=== PATIENT | male | born 1985 | race Caucasian/White ===

== ENCOUNTER 2018-10-19 21:23 | Inpatient (IN) | payer OTHER ==
[2018-10-19 22:49] VITALS: BMI 25.0
--- NOTE | 2018-10-20 01:10 | HP ---
CIWA Score Nausea/Vomitin Muscle Tremors: 4-Moderate,w/Arms Extend Anxiety: 3 Agitation: 4-Moderately Restless Paroxysmal Sweats: 2 Orientation: 2-Disoriented Date<2 days Tacttile Disturbances: 0-None Auditory Disturbances: 0-None Visual Disturbances: 0-None Headache: 0-None Present CIWA-Ar Total Score: 18 - Admission Criteria [facility]ASAS Guidelines: Admission for Medically Managed Detox: Requires at least one of the followin. CIWA greater than 12 2. Seizures within the past 24 hours 3. Delirium tremens within the past 24 hours 4. Hallucinations within the past 24 hours 5. Acute intervention needed for co occurring medical disorder 6. Acute intervention needed for co occurring psychiatric disorder 7. Severe withdrawal that cannot be handled at a lower level of care (continued vomiting, continued diarrhea, abnormal vital signs) requiring intravenous medication and/or fluids 8. Admission ROS [facility] Chief Complaint: Alcohol withdrawal symptoms Allergies/Adverse Reactions: Allergies Allergy/AdvReac Type Severity Reaction Status Date / Time No Known Allergies Allergy Verified 10/19/18 22:37 History of Present Illness: 32 years old male with a long history of alcohol dependence is seeking admission to detox. Patient has been in previous detox, last at [facility]. He denies past medical history and suicidal ideation at this time Exam Limitations: Intoxication - Ebola screening Have you traveled outside of the country in the last 21 days: No (N) Have you had contact with anyone from an Ebola affected area: No Do you have a fever: No - Review of Systems Constitutional: Chills, Malaise, Changes in sleep, Weakness EENT: reports: No Symptoms Reported Respiratory: reports: No Symptoms reported Cardiac: reports: No Symptoms Reported GI: reports: Nausea, Poor Appetite, Poor Fluid Intake, Vomiting, Abdominal cramping : reports: No Symptoms Reported Musculoskeletal: reports: Back Pain, Joint Pain, Muscle Weakness Integumentary: reports: Dryness, Flushing Endocrine: reports: No Symptoms Reported Hematology: reports: No Symptoms Reported Psychiatric: reports: Anxious Other Systems: Reviewed and Negative Patient History - Patient Medical History Hx Anemia: No Hx Asthma: No Hx Chronic Obstructive Pulmonary Disease (COPD): No Hx Cancer: No Hx Cardiac Disorders: No Hx Congestive Heart Failure: No Hx Hypertension: No Hx Hypercholesterolemia: No Hx Pacemaker: No HX Cerebrovascular Accident: No Hx Seizures: No Hx Dementia: No Hx Diabetes: No Hx Gastrointestinal Disorders: No Hx Liver Disease: No Hx Genitourinary Disorders: No Hx Sexually Transmitted Disorders: No Hx Renal Disease (ESRD): No Hx Thyroid Disease: No Hx Human Immunodeficiency Virus (HIV): No (Negative 2013) Hx Hepatitis C: No Hx Depression: Yes (no med) Hx Suicide Attempt: No (Denies suicidal ideation at this time) Hx Bipolar Disorder: No Hx Schizophrenia: No - Patient Surgical History Past Surgical History: Yes Hx Neurologic Surgery: No Hx Cataract Extraction: No Hx Cardiac Surgery: No Hx Lung Surgery: No Hx Abdominal Surgery: No Hx Appendectomy: No Hx Cholecystectomy: No Hx Genitourinary Surgery: No Hx Section: No Hx Orthopedic Surgery: No Other Surgical History: 7 months ago a blanka wire torn thru left testicle; was hospitalized repair i Anesthesia Reaction: No - PPD History Previous Implant?: Yes Documented Results: Negative w/proof Implanted On Prior [facility] Admission?: Yes Date: 04/09/14 PPD to be Administered?: Yes - Reproductive History Patient is a Female of Child Bearing Age (11 -55 yrs old): No (male) - Smoking Cessation Smoking history: Current every day smoker Have you smoked in the past 12 months: Yes Aproximately how many cigarettes per day: 3 If you are a former smoker, when did you quit?: Cigars Per Day: 0 Hx Chewing Tobacco Use: No Initiated information on smoking cessation: Yes 'Breaking Loose' booklet given: 10/20/18 - Substance & Tx. History Hx Alcohol Use: Yes Hx Substance Use: Yes Substance Use Type: Alcohol, Marijuana Hx Substance Use Treatment: Yes ([facility]) - Substances abused Alcohol Substance route: Oral Frequency: Daily Amount used: 2 PINTS Age of first use: 5 Date of last use: 10/19/18 Family Disease History - Family Disease History Family Disease History: Other: Father (ETOH DEPENDENT) Admission Physical Exam [facility] - Vital Signs Vital Signs: Vital Signs - 24 hr 10/19/18 22:41 Temperature 98.4 F Pulse Rate 94 H Respiratory 18 Rate Blood Pressure 117/71 - Physical General Appearance: Yes: Severe Distress, Intoxicated, Tremorous, Irritable, Anxious HEENTM: Yes: Within Normal Limits, Normal Voice Respiratory: Yes: Lungs Clear, Normal Breath Sounds, No Respiratory Distress Neck: Yes: Supple Breast: Yes: Breast Exam Deferred Cardiology: Yes: Tachycardia Abdominal: Yes: Normal Bowel Sounds Back: Yes: Normal Inspection Musculoskeletal: Yes: Back pain, Muscle Pain Extremities: Yes: Tremors Neurological: Yes: Within Normal Limits Integumentary: Yes: Warm Lymphatic: Yes: Within Normal Limits Cleared for Admission S - Detox or Rehab [facility] Level of Care: Medically Managed Detox Regimen/Protocol: Librium Breathalyzer - Breathalyzer Breathalyzer: 0.109 Urine Drug Screen - Test Device Lot number: [id number] Expiration date: 10/20/18 - Results Drug screen NEGATIVE: No Urine drug screen results: THC-Marijuana Inpatient Rehab Admission - Rehab Decision to Admit Inpatient rehab admission?: No
[2018-10-20] MEDS ORDERED: MENTHOL/PHENOL 1 EACH UD MM PRN (01:19)
[2018-10-20] MEDS ORDERED: hydrOXYzine PAMOATE 25 MG CAPSULE (FP) PO PRN (01:19)
[2018-10-20] MEDS ORDERED: METHOCARBAMOL 500 MG TABLET PO PRN (01:19)
[2018-10-20] MEDS ORDERED: IBUPROFEN 400 MG TABLET (FP) PO PRN (01:19)
[2018-10-20] MEDS ORDERED: MAGNESIUM HYDROX 2400MG/30ML ORAL SUSPENSION 30 ML CUP PO PRN (01:19)
[2018-10-20] MEDS ORDERED: ACETAMINOPHEN 325 MG TABLET (FP) PO PRN ×2 (01:19)
[2018-10-20] MEDS ORDERED: MAGNESIUM CITRATE 300 ML BOTTLE PO PRN (01:19)
[2018-10-20] MEDS ORDERED: BISMUTH SUBSALICYLATE 524 MG/30 ML UD PO PRN (01:19)
[2018-10-20] MEDS ORDERED: MAG HYDROX/AL HYDROX/SIMETH 30 ML UNIT-DOSE CUP PO PRN (01:19)
[2018-10-20] MEDS ORDERED: chlordiazePOXIDE HCL 25 MG CAPSULE PO PRN (01:19)
[2018-10-20] MEDS ORDERED: NICOTINE POLACRILEX 2 MG GUM BUC PRN (01:19)
[2018-10-20] MEDS ORDERED: MELATONIN 5 MG TABLETS PO PRN (01:19)
[2018-10-20] MEDS ORDERED: TUBERCULIN PPD 5 TU/0.1ML VIAL ID ONE (05:58)
[2018-10-20] MEDS: chlordiazePOXIDE HCL 25 MG CAPSULE PO SCH ×4 (06:00→22:28)
[2018-10-20] MEDS: NICOTINE 14 MG/24 HOURS TOPICAL PATCH TD SCH (11:00)
--- NOTE | 2018-10-20 11:09 | PN ---
[facility] CIWA - CIWA Score Nausea/Vomitin Muscle Tremors: 2 Anxiety: 2 Agitation: 2 Paroxysmal Sweats: 1-Minimal Palms Moist Orientation: 0-Oriented Tacttile Disturbances: 1-Very Mild Itch/Numbness Auditory Disturbances: 1-Very Mild Visual Disturbances: 0-None Headache: 2-Mild CIWA-Ar Total Score: 13 BHS Progress Note (SOAP) Subjective: alert,irritable,anxious,interrupted sleep,tremor Objective: 10/20/18 11:07 Vital Signs Temperature 98.1 F 10/20/18 09:21 Pulse Rate 87 10/20/18 09:21 Respiratory Rate 16 10/20/18 09:21 Blood Pressure 134/76 10/20/18 09:21 O2 Sat by Pulse Oximetry (%) Assessment: 10/20/18 11:08 withdrawal symptom Plan: continue detox
[2018-10-20] MEDS: PRENATAL VITAMINS W/ FOLIC ACID TABLET (FP) PO SCH (12:00)
[2018-10-20] MEDS ORDERED: THIAMINE HCL 100 MG TABLET (FP) PO SCH (22:00)
[2018-10-21] MEDS: chlordiazePOXIDE HCL 25 MG CAPSULE PO SCH ×2 (05:49→10:09)
[2018-10-21] MEDS ORDERED: PNEUMOC 13-VAL CONJ-DIP CRM/PF 0.5 ML DISP.SYRIN IM ONE (09:09)
[2018-10-21 09:26] VITALS: BP 113/72; PULSE 67; TEMP 97.8
[2018-10-21 10:09] LABS: HEMATOCRIT 43.1 % (35.4-49); HEMOGLOBIN 14.3 GM/dL (11.7-16.9); MCH 30.3 pg (25.7-33.7); MCHC 33.3 g/dl (32.0-35.9); MEAN CELL VOLUME 91.1 fl (80-96); MEAN PLT VOLUME 8.1 fl (7.5-11.1); PLATELET COUNT 233 K/MM3 (134-434); RBC 4.73 M/mm3 (4.00-5.60); RDW 15.3 % (11.9-15.9); WHITE BLOOD COUNT 6.3 K/mm3 (4.0-10.0)
[2018-10-21] MEDS: PRENATAL VITAMINS W/ FOLIC ACID TABLET (FP) PO SCH (10:09)
[2018-10-21] MEDS: NICOTINE 14 MG/24 HOURS TOPICAL PATCH TD SCH (10:10)
[2018-10-21 10:14] LABS: ALBUMIN 3.4 g/dl (3.4-5.0); BILIRUBIN,TOTAL 0.8 mg/dL (0.2-1); CALCIUM 9.2 mg/dL (8.5-10.1); CREATININE 0.6 mg/dL (0.55-1.3); POTASSIUM 3.8 mmol/L (3.5-5.1)
--- NOTE | 2018-10-21 10:42 | EKG ---
Test Reason : Blood Pressure : / mmHG Vent. Rate : 086 BPM Atrial Rate : 086 BPM P-R Int : 160 ms QRS Dur : 080 ms QT Int : 340 ms P-R-T Axes : 065 055 043 degrees QTc Int : 406 ms NORMAL SINUS RHYTHM NORMAL ECG NO PREVIOUS ECGS AVAILABLE Confirmed by JENNIFER HOWELL, PAU ([id number]) on 10/21/2018 10:41:50 AM Referred By: Confirmed By:PAU RODRIGUEZ MD
--- NOTE | 2018-10-21 11:46 | DS ---
[facility] Detox Discharge Summary Admission Date: 10/20/18 Discharge Date: 10/21/18 - History Present History: Alcohol Dependence Additional Comments: PT DECLINED TO CONTINUE DETOX FOR PERSONAL REASONS. PT REPORTED NO WITHDRAWAL SX ON ROUNDS THIS MORNING. ALERT O X 3. AMBULATING WITH STEADY GAIT. Pertinent Past History: PLEASE SEE DX BELOW - Physical Exam Results Vital Signs: Vital Signs Temperature 97.8 F 10/21/18 09:25 Pulse Rate 67 10/21/18 09:25 Respiratory Rate 18 10/21/18 09:25 Blood Pressure 113/72 10/21/18 09:25 O2 Sat by Pulse Oximetry (%) Pertinent Admission Physical Exam Findings: WITHDRAWAL SX Laboratory Tests 10/21/18 10/21/18 07:50 07:50 WBC 6.3 RBC 4.73 Hgb 14.3 Hct 43.1 MCV 91.1 MCH 30.3 MCHC 33.3 RDW 15.3 D Plt Count 233 MPV 8.1 Sodium 139 Potassium 3.8 Chloride 105 Carbon Dioxide 30 Anion Gap 4 L BUN 8.0 Creatinine 0.6 Est GFR (CKD-EPI)AfAm 152.04 Est GFR (CKD-EPI)NonAf 131.18 Random Glucose 102 Calcium 9.2 Total Bilirubin 0.8 AST 81 H ALT 72 H Alkaline Phosphatase 111 Total Protein 7.0 Albumin 3.4 - Treatment Hospital Course: Discharged Condition Good - Medication Discharge Medications: Ambulatory Orders NK [No Known Home Medication] 10/19/18 - Diagnosis (1) Nicotine dependence Current Visit: Yes Status: Acute Qualifiers: Nicotine product type: cigarettes Substance use status: in withdrawal Qualified Code(s): F17.213 - Nicotine dependence, cigarettes, with withdrawal (2) Vision loss of left eye Current Visit: Yes Status: Chronic (3) Alcohol dependence with uncomplicated withdrawal Current Visit: Yes Status: Acute - AMA Did Patient Leave Against Medical Advice: Yes (AMA)
[2018-10-21] MEDS ORDERED: PNEUMOCOCCAL 23 VACCINE 0.5 ML VIAL IM ONE (12:00)
[2018-10-22] MEDS ORDERED: chlordiazePOXIDE HCL 10 MG CAPSULE PO PRN
[2018-10-22] MEDS ORDERED: chlordiazePOXIDE HCL 10 MG CAPSULE PO SCH (05:00)
[2018-10-23] MEDS ORDERED: chlordiazePOXIDE HCL 10 MG CAPSULE PO SCH (05:00)
[2018-10-24] MEDS ORDERED: chlordiazePOXIDE HCL 10 MG CAPSULE PO ONE (05:00)
== END 2018-10-21 10:58 | disposition left against medical advice (07) | DRG 894 ==
LOC: YASAS 21:23 → Y6N 10-20 03:15
PROVIDERS: ADMIT Surgery; ATTEND Surgery
PROC: HZ2ZZZZ Detoxification Services for Substance Abuse Treatment (ICD-10-PCS; principal; 2018-10-20)
DX: F10.230 Alcohol dependence with withdrawal, uncomplicated (principal); F17.210 Nicotine dependence, cigarettes, uncomplicated; F32.9 Major depressive disorder, single episode, unspecified; H54.62 Unqualified visual loss, left eye, normal vision right eye
CPT/HCPCS: 36415; 80053; 85027; 86593; 93005; 93010

== ENCOUNTER 2018-10-27 18:07 | Emergency (ER) | payer OTHER ==
[2018-10-27 18:15] VITALS: BP 142/94; PULSE 99; TEMP 97.4; BMI 25.7
--- NOTE | 2018-10-27 18:17 | PDOC ---
Rapid Medical Evaluation Chief Complaint: Rash Time Seen by Provider: 10/27/18 18:11 Medical Evaluation: Allergies Allergy/AdvReac Type Severity Reaction Status Date / Time No Known Allergies Allergy Verified 10/27/18 18:11 10/27/18 18:14 Pt c/o: gen itching, drinks approx 24 beers/day. denies insect bits or bumps to skin, denies liver failure Pt on brief exam: skin intact, + intox Pt ordered for: lft, cbc Pt to proceed to the ED Discharge Disposition - Diagnosis Itching, Eloped from emergency department - Discharge Dispostion Disposition: ELOPED Condition at time of disposition: Unchanged/Unknown - Referrals - Patient Instructions - Post Discharge Activity
== END 2018-10-27 22:46 | disposition left against medical advice (07) ==
LOC: JER 18:07
DX: L29.9 Pruritus, unspecified (principal)
CPT/HCPCS: 99281-25

== ENCOUNTER 2018-10-28 09:28 | Emergency (ER) | payer OTHER ==
[2018-10-28 09:34] VITALS: BP 125/97; PULSE 84; TEMP 98; BMI 22.8
--- NOTE | 2018-10-28 10:46 | PDOC ---
History of Present Illness - General Chief Complaint: Tremors Stated Complaint: CRAWLING UNDER SKIN SENSATION Time Seen by Provider: 10/28/18 10:08 History Source: Patient Exam Limitations: Clinical Condition - History of Present Illness Initial Comments: 10/28/18 10:39 Patient with history of alcohol abuse present with complaint of over 2 months history of diffuse body itching and skin crawling sensation when he does not drink alcohol.. Patient reported having last drink yesterday morning with vodka 11 AM. Patient report coming last night due to itchiness no skin by fell asleep and was not seen. Patient has been going for detox for alcohol. Denies illicit drug use. Patient reports to smoking 3 months ago. Patient was last in detox a week ago. Denies nausea, vomiting, dizziness, headache or weakness. Denies any other symptoms.Patient reportedly he has been here symptoms over 12 hours ago last night and has not been seen. Upon taking to charge nurse, patient was found to have been eloped as he was not found when provider was ready to see him last night but patient was found sleeping in vertical room this morning and was walking up and reported he was here since yesterday last night but has not been seen. Timing/Duration: other (2 months) Past History - Past Medical History Allergies/Adverse Reactions: Allergies Allergy/AdvReac Type Severity Reaction Status Date / Time No Known Allergies Allergy Verified 10/28/18 09:34 Home Medications: Ambulatory Orders NK [No Known Home Medication] 10/19/18 Anemia: No Asthma: No Cancer: No Cardiac Disorders: No CVA: No COPD: No CHF: No Dementia: No Diabetes: No GI Disorders: No Disorders: No HTN: No Hypercholesterolemia: No Kidney Stones: No Liver Disease: No Seizures: No Thyroid Disease: No - Surgical History Abdominal Surgery: No Appendectomy: No Cardiac Surgery: No Cholecystectomy: No Lung Surgery: No Neurologic Surgery: No Orthopedic Surgery: No - Reproductive History Testicular Surgery: No - Suicide/Smoking/Psychosocial Hx Smoking History: Unknown if ever smoked Have you smoked in the past 12 months: No Number of Cigarettes Smoked Daily: 3 If you are a former smoker, when did you quit?: Cigars Per Day: 0 'Breaking Loose' booklet given: 10/20/18 Hx Alcohol Use: Yes Drug/Substance Use Hx: No Substance Use Type: Alcohol, Marijuana Hx Substance Use Treatment: Yes ([facility]) Review of Systems - Review of Systems Able to Perform ROS?: Yes Is the patient limited Ug[place]an proficient: No Constitutional: No: Malaise, Weakness HEENTM: No: Symptoms Reported Respiratory: No: Symptoms reported, See HPI, Cough, Orthopnea, Shortness of Breath, SOB with Exertion, SOB at Rest, Stridor, Wheezing, Productive cough, Hemoptysis, Other Cardiac (ROS): No: Symptoms Reported, See HPI, Chest Pain, Edema, Irregular Heart Rate, Lightheadedness, Palpitations, Syncope, Chest Tightness, Other ABD/GI: No: Symptoms Reported, Nausea, Vomiting Integumentary: Yes: Symptoms Reported, See HPI, Pruritus (whle body) Neurological: Yes: Symptoms reported, See HPI, Tingling. No: Numbness, Paresthesia, Weakness, Dizziness All Other Systems: Reviewed and Negative *Physical Exam - Vital Signs Last Vital Signs Temp Pulse Resp BP Pulse Ox 98 F 84 20 125/97 99 10/28/18 09:32 10/28/18 09:32 10/28/18 09:32 10/28/18 09:32 10/28/18 09:32 - Physical Exam General Appearance: Yes: Nourished, Appropriately Dressed, Alcohol on Breath HEENT: positive: ELISE, Normal ENT Inspection Neck: positive: Supple Respiratory/Chest: positive: Lungs Clear. negative: Respiratory Distress, Accessory Muscle Use, Labored Respiration Cardiovascular: positive: Regular Rhythm, Regular Rate Musculoskeletal: positive: Normal Inspection Extremity: positive: Normal Inspection Neurologic: positive: Fully Oriented, Alert, Normal Mood/Affect, Normal Response Medical Decision Making - Medical Decision Making 10/28/18 10:41 Patient with history of alcohol abuse present with complaint of over 2 months history of diffuse body itching and skin crawling sensation when he does not drink alcohol.. Patient reported having last drink yesterday morning with vodka 11 AM. Patient report coming last night due to itchiness no skin by fell asleep and was not seen. Patient has been going for detox for alcohol. Denies illicit drug use. Patient reports to smoking 3 months ago. Patient was last in detox a week ago. Denies nausea, vomiting, dizziness, headache or weakness. Denies any other symptoms Clinical exam unremarkable with normal neuro exam. Patient advised skin itching and crawling sensation likely due to alcohol and will need to go back to detox to help with alcohol withdrawal. Patient advised to detox center will be contacted so patient can go for detox today. Patient voiced understanding and will wait for detox instructions 10/28/18 10:49 Patient eloped when attempt was being made to contact detox center. Patient was not found in the vertical room where patient was advised to wait for detox *DC/Admit/Observation/Transfer Diagnosis at time of Disposition: Alcohol dependence with uncomplicated withdrawal - Discharge Dispostion Disposition: ELOPED Condition at time of disposition: Stable Decision to Admit order: No - Referrals - Patient Instructions - Post Discharge Activity
== END 2018-10-28 12:12 | disposition left against medical advice (07) ==
LOC: JER 09:28
DX: Z53.21 Procedure and treatment not carried out due to patient leaving prior to being seen by health care provider (principal)
CPT/HCPCS: 99281-25

== ENCOUNTER 2021-02-05 09:27 | Emergency (ER) | payer OTHER ==
[2021-02-05 09:40] VITALS: BP 135/87; PULSE 90; TEMP 97.7; BMI 22.8
== END 2021-02-05 10:21 | disposition left against medical advice (07) ==
LOC: JER 09:27
DX: R21 Rash and other nonspecific skin eruption (principal)
CPT/HCPCS: 99281-25

== ENCOUNTER 2021-04-17 21:46 | Emergency (ER) | payer OTHER ==
[2021-04-17 22:35] VITALS: BP 117/77; PULSE 100; TEMP 97.6; BMI 21.5
== END 2021-04-18 05:26 | disposition home or self-care (01) ==
LOC: JER 21:46
DX: F10.920 Alcohol use, unspecified with intoxication, uncomplicated (principal)
CPT/HCPCS: 70450-TC; 72125-TC; 82962; 99284-25

== ENCOUNTER 2022-03-03 02:20 | Inpatient (IN) | payer OTHER ==
[2022-03-03] MEDS ORDERED: ACETAMINOPHEN 325 MG TABLET (FP) PO PRN (02:35)
[2022-03-03] MEDS ORDERED: NALOXONE HCL (KLOXXADO) 8 MG SPRAY NS PRN (02:35)
[2022-03-03] MEDS ORDERED: DICYCLOMINE HCL 10 MG CAPSULE PO PRN (02:35)
[2022-03-03] MEDS ORDERED: hydrOXYzine PAMOATE 25 MG CAPSULE (FP) PO PRN (02:35)
[2022-03-03] MEDS ORDERED: MAGNESIUM HYDROX 2400MG/30ML ORAL SUSPENSION 30 ML CUP PO PRN (02:35)
[2022-03-03] MEDS ORDERED: guaiFENesin 200 MG/10 ML 10 ML UNIT-DOSE CUPS PO PRN (02:35)
[2022-03-03] MEDS ORDERED: MAG HYDROX/AL HYDROX/SIMETH 30 ML UNIT-DOSE CUP PO PRN (02:35)
[2022-03-03] MEDS ORDERED: LOPERAMIDE HCL 2 MG CAPSULE PO PRN (02:35)
[2022-03-03] MEDS ORDERED: BENZOCAINE/MENTHOL (CHLORASEPTIC ) LOZENGE MM PRN (02:35)
[2022-03-03] MEDS ORDERED: ONDANSETRON *ODT* 4 MG TABLET SL PRN (02:35)
[2022-03-03] MEDS ORDERED: IBUPROFEN 400 MG TABLET (FP) PO PRN (02:35)
[2022-03-03] MEDS ORDERED: BISMUTH SUBSALICYLATE 524 MG/30 ML PO PRN (02:35)
[2022-03-03] MEDS ORDERED: P-EPHED 60MG/TRIPROLIDI 2.5MG TABLET PO PRN (02:35)
[2022-03-03 02:52] VITALS: BMI 27.9
[2022-03-03] MEDS: METHOCARBAMOL 500 MG TABLET PO PRN ×2 (04:44→17:24)
[2022-03-03] MEDS: IBUPROFEN 600 MG TABLET (FP) PO PRN ×2 (04:45→17:24)
[2022-03-03] MEDS: PRENATAL VITAMINS W/ FOLIC ACID TABLET (FP) PO SCH (09:22)
[2022-03-03] MEDS: ACETAMINOPHEN 325 MG TABLET (FP) PO PRN ×2 (09:22→21:08)
[2022-03-03 12:25] LABS: ALBUMIN 3.6 g/dl (3.4-5.0); BLOOD UREA NITROGEN 10.4 mg/dL (7-18); CALCIUM 8.7 mg/dL (8.5-10.1)
[2022-03-03 12:29] LABS: CREATININE 0.6 mg/dL (0.55-1.3)
[2022-03-03 12:30] LABS: BILIRUBIN,TOTAL 0.9 mg/dL (0.2-1); TOT PROT 7.1 g/dl (6.4-8.2)
[2022-03-03 12:34] LABS: HEMATOCRIT 36.7 % (35.4-49); HEMOGLOBIN 12.6 GM/dL (11.7-16.9); MCH 28.6 pg (25.7-33.7); MCHC 34.4 g/dl (32.0-35.9); MEAN CELL VOLUME 83.1 fl (80-96); MEAN PLT VOLUME 8.4 fl (7.5-11.1); PLATELET COUNT 241 10^3/uL (134-434); RBC 4.42 M/mm3 (4.00-5.60); RDW 14.6 % (11.9-15.9); WHITE BLOOD COUNT 11.1 K/mm3 (4.0-10.0)
[2022-03-03] MEDS ORDERED: THIAMINE HCL 100 MG TABLET (FP) PO SCH (22:00)
[2022-03-03] MEDS ORDERED: MELATONIN 5 MG TABLETS PO SCH (22:00)
[2022-03-04] MEDS: IBUPROFEN 600 MG TABLET (FP) PO PRN (02:42)
[2022-03-04] MEDS: METHOCARBAMOL 500 MG TABLET PO PRN ×2 (02:43→10:28)
[2022-03-04 09:19] VITALS: BP 112/67; PULSE 77; RESP 16; TEMP 97.3
[2022-03-04] MEDS: PRENATAL VITAMINS W/ FOLIC ACID TABLET (FP) PO SCH (10:28)
== END 2022-03-04 11:28 | disposition home or self-care (01) | DRG 897 ==
LOC: YASAS 02:20 → Y3N 02:47 → UNDOADMIN 02:47
PROVIDERS: ADMIT Allergy & Immunology; ATTEND Allergy & Immunology
PROC: HZ2ZZZZ Detoxification Services for Substance Abuse Treatment (ICD-10-PCS; principal; 2022-03-03)
DX: F10.230 Alcohol dependence with withdrawal, uncomplicated (principal); F16.20 Hallucinogen dependence, uncomplicated; H53.002 Unspecified amblyopia, left eye; S42.291D Other displaced fracture of upper end of right humerus, subsequent encounter for fracture with routine healing; X58.XXXD Exposure to other specified factors, subsequent encounter
CPT/HCPCS: 36415; 80053; 85027; 86780; 93005; 93010; 99283-25; C9803-CS; U0003; U0005

== ENCOUNTER 2022-04-05 07:36 | Emergency (ER) | payer OTHER ==
[2022-04-05 08:14] VITALS: TEMP 97.9; BMI 27.0
[2022-04-05] MEDS ORDERED: FAMOTIDINE 20 MG/50 ML IVPB 20 MG in PREMIX 50 IVPB ONE (08:46)
[2022-04-05] MEDS ORDERED: MAG HYDROX/AL HYDROX/SIMETH -MYLANTA- ORAL SUSPENSION PO ONE (08:46)
[2022-04-05] MEDS ORDERED: SODIUM CHLORIDE 1,000 ML IV ONE (08:46)
[2022-04-05] MEDS ORDERED: FAMOTIDINE 20 MG/50 ML IVPB 20 MG/50 ML MG IVPB ONE (08:55)
[2022-04-05] MEDS ORDERED: MAG HYDROX/AL HYDROX/SIMETH 30 ML UNIT-DOSE CUP ONE (08:55)
[2022-04-05 09:23] LABS: BASO % 0.5 % (0-2.0); EOS % 1.6 % (0-4.5); HEMATOCRIT 41.5 % (35.4-49); HEMOGLOBIN 13.5 GM/dL (11.7-16.9); LYMPH % 14.5 % (8-40); MCH 28.7 pg (25.7-33.7); MCHC 32.5 g/dl (32.0-35.9); MEAN CELL VOLUME 88.3 fl (80-96); MEAN PLT VOLUME 7.9 fl (7.5-11.1); MONO % 7.2 % (3.8-10.2); NEUT % 76.2 % (42.8-82.8); PLATELET COUNT 207 10^3/uL (134-434); RBC 4.71 M/mm3 (4.00-5.60); RDW 16.6 % (11.9-15.9); WHITE BLOOD COUNT 7.9 K/mm3 (4.0-10.0)
[2022-04-05 10:01] LABS: BLOOD UREA NITROGEN 9.3 mg/dL (7-18); CALCIUM 9.4 mg/dL (8.5-10.1)
[2022-04-05 10:02] LABS: ALBUMIN 3.4 g/dl (3.4-5.0)
[2022-04-05 10:04] LABS: CREATININE 0.6 mg/dL (0.55-1.3)
[2022-04-05 10:06] LABS: BILIRUBIN,TOTAL 0.5 mg/dL (0.2-1); TOT PROT 7.8 g/dl (6.4-8.2)
[2022-04-05 11:18] VITALS: BP 141/90; PULSE 97; RESP 18
== END 2022-04-05 12:14 | disposition home or self-care (01) ==
LOC: JER 07:36
PROC: 3E033GC Introduction of Other Therapeutic Substance into Peripheral Vein, Percutaneous Approach (ICD-10-PCS; principal; 2022-04-05)
PROC: 3E0337Z Introduction of Electrolytic and Water Balance Substance into Peripheral Vein, Percutaneous Approach (ICD-10-PCS; 2022-04-05)
DX: R10.13 Epigastric pain (principal); L29.9 Pruritus, unspecified; R74.01 Elevation of levels of liver transaminase levels
CPT/HCPCS: 0241U-QW; 36415; 73030-TC-RT-FY; 80053; 83690; 85025; 99284-25

== ENCOUNTER 2023-04-11 13:09 | Inpatient (IN) | payer OTHER ==
[2023-04-11 14:24] VITALS: BMI 25.0
[2023-04-11] MEDS ORDERED: P-EPHED 60MG/TRIPROLIDI 2.5MG TABLET PO PRN (14:49)
[2023-04-11] MEDS ORDERED: BENZONATATE 200 MG CAPSULE PO PRN (14:49)
[2023-04-11] MEDS ORDERED: ACETAMINOPHEN 325 MG TABLET (FP) PO PRN (14:49)
[2023-04-11] MEDS ORDERED: MAG HYDROX/AL HYDROX/SIMETH 30 ML UNIT-DOSE CUP PO PRN (14:49)
[2023-04-11] MEDS ORDERED: IBUPROFEN 400 MG TABLET (FP) PO PRN (14:49)
[2023-04-11] MEDS ORDERED: BISMUTH SUBSALICYLATE 262 MG/15 ML BTL PO PRN (14:49)
[2023-04-11] MEDS ORDERED: DICYCLOMINE HCL 10 MG CAPSULE PO PRN (14:49)
[2023-04-11] MEDS ORDERED: ONDANSETRON *ODT* 4 MG TABLET SL PRN (14:49)
[2023-04-11] MEDS ORDERED: hydrOXYzine PAMOATE 25 MG CAPSULE (FP) PO PRN (14:49)
[2023-04-11] MEDS ORDERED: METHOCARBAMOL 500 MG TABLET PO PRN (14:49)
[2023-04-11] MEDS ORDERED: POLYETHYLENE GLYCOL (HEALTHYLAX) 3350 17 GM PACKET PO PRN (14:49)
[2023-04-11] MEDS ORDERED: LOPERAMIDE HCL 2 MG CAPSULE PO PRN (14:49)
[2023-04-11] MEDS ORDERED: MAGNESIUM HYDROX 2400MG/30ML ORAL SUSPENSION 30 ML CUP PO PRN (14:49)
[2023-04-11] MEDS: diazePAM 5 MG TABLET PO PRN (15:45)
[2023-04-11] MEDS: IBUPROFEN 600 MG TABLET (FP) PO PRN (17:40)
[2023-04-11] MEDS: diazePAM 5 MG TABLET PO SCH ×2 (17:40→23:15)
[2023-04-11] MEDS: MELATONIN 5 MG TABLETS PO SCH (23:15)
[2023-04-11] MEDS: THIAMINE HCL 100 MG TABLET (FP) PO SCH (23:15)
[2023-04-12] MEDS: diazePAM 5 MG TABLET PO PRN (00:11)
[2023-04-12] MEDS: diazePAM 5 MG TABLET PO SCH ×4 (05:23→22:26)
[2023-04-12] MEDS: PRENATAL VITAMINS W/ FOLIC ACID TABLET (FP) PO SCH (10:10)
[2023-04-12 11:21] LABS: HIV INTERPRETATION NEGATIVE (NEGATIVE)
[2023-04-12] MEDS: guaiFENesin 600 MG TABLET.ER (FP) PO PRN ×2 (14:41→22:28)
[2023-04-12] MEDS: BENZOCAINE/MENTHOL (CHLORASEPTIC ) LOZENGE MM PRN (14:41)
[2023-04-12] MEDS ORDERED: HYDROCORTISONE 1% TOPICAL CREAM 30 GM TUBE TP PRN (20:42)
[2023-04-12] MEDS: THIAMINE HCL 100 MG TABLET (FP) PO SCH (22:26)
[2023-04-12] MEDS: MELATONIN 5 MG TABLETS PO SCH (22:26)
[2023-04-13] MEDS: diazePAM 5 MG TABLET PO SCH ×3 (05:44→22:33)
[2023-04-13] MEDS: PRENATAL VITAMINS W/ FOLIC ACID TABLET (FP) PO SCH (10:26)
[2023-04-13] MEDS: diazePAM 5 MG TABLET PO PRN (10:28)
[2023-04-13] MEDS: guaiFENesin 600 MG TABLET.ER (FP) PO PRN (13:51)
[2023-04-13] MEDS: BENZOCAINE/MENTHOL (CHLORASEPTIC ) LOZENGE MM PRN (13:51)
[2023-04-13] MEDS: THIAMINE HCL 100 MG TABLET (FP) PO SCH (22:33)
[2023-04-13] MEDS: MELATONIN 5 MG TABLETS PO SCH (22:33)
[2023-04-14] MEDS: diazePAM 5 MG TABLET PO SCH ×2 (05:24→17:45)
[2023-04-14] MEDS: diazePAM 5 MG TABLET PO PRN (10:31)
[2023-04-14] MEDS: PRENATAL VITAMINS W/ FOLIC ACID TABLET (FP) PO SCH (10:32)
[2023-04-14] MEDS: IBUPROFEN 600 MG TABLET (FP) PO PRN (22:16)
[2023-04-14] MEDS: THIAMINE HCL 100 MG TABLET (FP) PO SCH (22:16)
[2023-04-14] MEDS: MELATONIN 5 MG TABLETS PO SCH (22:16)
[2023-04-14] MEDS: BENZOCAINE/MENTHOL (CHLORASEPTIC ) LOZENGE MM PRN (22:18)
[2023-04-15] MEDS ORDERED: diazePAM 5 MG TABLET PO ONE (06:00)
[2023-04-15 08:56] VITALS: BP 98/64; PULSE 82; RESP 16; TEMP 97.8
[2023-04-15] MEDS: PRENATAL VITAMINS W/ FOLIC ACID TABLET (FP) PO SCH (09:52)
== END 2023-04-15 10:56 | disposition home or self-care (01) | DRG 897 ==
LOC: YASAS 13:09 → Y3N 14:57
PROVIDERS: ADMIT Allergy & Immunology; ATTEND Surgery
PROC: HZ2ZZZZ Detoxification Services for Substance Abuse Treatment (ICD-10-PCS; principal; 2023-04-11)
DX: F10.230 Alcohol dependence with withdrawal, uncomplicated (principal); F16.10 Hallucinogen abuse, uncomplicated; F17.210 Nicotine dependence, cigarettes, uncomplicated; S42.292D Other displaced fracture of upper end of left humerus, subsequent encounter for fracture with routine healing; W19.XXXD Unspecified fall, subsequent encounter; Z28.310 Unvaccinated for COVID-19; Z28.9 Immunization not carried out for unspecified reason
CPT/HCPCS: 36415; 73030-TC-LT-FY; 86780; 87389; 87635; 87811; Q0162

== ENCOUNTER 2023-04-11 19:28 | Emergency (ER) | payer OTHER ==
[2023-04-11 19:55] VITALS: BP 114/69; PULSE 98; RESP 18; TEMP 97.9; BMI 28.1
[2023-04-11] MEDS ORDERED: FOLIC ACID INJECTION - 1 MG, THIAMINE HCL 100 MG, MULTIVIT INJECTION ADULT 10 ML in SOD... IVPB ONE (20:08)
[2023-04-11] MEDS ORDERED: ACETAMINOPHEN 1000 MG/100 ML BAG IVPB ONE (20:25)
[2023-04-11] MEDS ORDERED: ACETAMINOPHEN INJECTION 100 ML IVPB ONE (20:28)
[2023-04-11 20:46] LABS: BASO % 0.5 % (0-2.0); EOS % 2.5 % (0-4.5); HEMATOCRIT 43.1 % (35.4-49); HEMOGLOBIN 14.3 GM/dL (11.7-16.9); LYMPH % 36.3 % (8-40); MCH 31.2 pg (25.7-33.7); MCHC 33.2 g/dl (32.0-35.9); MEAN CELL VOLUME 93.9 fl (80-96); MEAN PLT VOLUME 7.4 fl (7.5-11.1); MONO % 10.1 % (3.8-10.2); NEUT % 50.6 % (42.8-82.8); PLATELET COUNT 221 10^3/uL (134-434); RBC 4.59 M/mm3 (4.00-5.60); RDW 13.8 % (11.9-15.9); WHITE BLOOD COUNT 5.9 K/mm3 (4.0-10.0)
[2023-04-11 20:57] LABS: INR 0.95 (0.83-1.09)
[2023-04-11 21:00] LABS: ACTIVATED PTT 28.5 SECONDS (25.2-36.5)
[2023-04-11 21:08] LABS: ALBUMIN 3.2 g/dl (3.4-5.0); CALCIUM 9.1 mg/dL (8.5-10.1)
[2023-04-11 21:09] LABS: BLOOD UREA NITROGEN 7.3 mg/dL (7-18)
[2023-04-11 21:12] LABS: CREATININE 0.6 mg/dL (0.55-1.3)
[2023-04-11 21:13] LABS: BILIRUBIN,TOTAL 0.4 mg/dL (0.2-1); TOT PROT 7.7 g/dl (6.4-8.2)
== END 2023-04-11 23:27 | disposition home or self-care (01) ==
LOC: JER 19:28
PROC: 3E033GC Introduction of Other Therapeutic Substance into Peripheral Vein, Percutaneous Approach (ICD-10-PCS; principal; 2023-04-11)
PROC: 3E033GC Introduction of Other Therapeutic Substance into Peripheral Vein, Percutaneous Approach (ICD-10-PCS; 2023-04-11)
PROC: 3E033GC Introduction of Other Therapeutic Substance into Peripheral Vein, Percutaneous Approach (ICD-10-PCS; 2023-04-11)
PROC: 3E033GC Introduction of Other Therapeutic Substance into Peripheral Vein, Percutaneous Approach (ICD-10-PCS; 2023-04-11)
PROC: 3E033GC Introduction of Other Therapeutic Substance into Peripheral Vein, Percutaneous Approach (ICD-10-PCS; 2023-04-11)
PROC: 3E033GC Introduction of Other Therapeutic Substance into Peripheral Vein, Percutaneous Approach (ICD-10-PCS; 2023-04-11)
PROC: 3E033GC Introduction of Other Therapeutic Substance into Peripheral Vein, Percutaneous Approach (ICD-10-PCS; 2023-04-11)
PROC: 3E033GC Introduction of Other Therapeutic Substance into Peripheral Vein, Percutaneous Approach (ICD-10-PCS; 2023-04-11)
PROC: 3E033NZ Introduction of Analgesics, Hypnotics, Sedatives into Peripheral Vein, Percutaneous Approach (ICD-10-PCS; 2023-04-11)
DX: S42.201D Unspecified fracture of upper end of right humerus, subsequent encounter for fracture with routine healing (principal); F19.90 Other psychoactive substance use, unspecified, uncomplicated; M25.512 Pain in left shoulder; F10.929 Alcohol use, unspecified with intoxication, unspecified; X58.XXXD Exposure to other specified factors, subsequent encounter
CPT/HCPCS: 36415; 71045-TC-FY; 80053; 80307; 85025; 85610; 85730; 86850; 86900; 86901; 96365; 96366; 96375; 99284-25